=== PATIENT | female | born 1955 | race African-American/Black ===

== ENCOUNTER → 2016-08-18 | Outpatient (CLI) | payer OTHER ==
[~2016-08-18] VITALS: Ht 157.5 cm; Wt 54.1 kg
[~2016-08-18] MED LIST: ALBU0.08 NEB; ALBU0.086 NEB; ALBU8I INH; ATRO0.03 EACH NARE; AZAT50 PO; CALC.25 PO; CALC0.25 PO; CALC0.5C6 PO; CALC1CAP PO; CALC667T PO; CLON.2 PO; CYCL-36 PO; DILT300T PO; FLON0.053 EACH NARE; FLUT1SPR5 EACH NARE; INSULIN HUMAN REGULAR 1,000 UNITS/10 ML VIAL SQ PRN; IPRA0.02 NEB; LACTATED RINGER'S 1000 ML IV SCH; LATA.005%O EACH EYE; METOPROLOL TARTRATE 25 MG TAB PO PRN; OMPR20CCR PO; PRED5 PO; PRIL20CA9 PO; PROPOFOL 200 MG/20 ML AMP IV ONE; SODIUM CHLORID 0.9% 500 ML IV SCH; SYMB160A INH; SYMB80AE INH; TEKT300T PO; ZOFR4TAB3 SL
[2016-08-18 08:51] VITALS: BP 129/76; PULSE 90; RESP 20; TEMP 97.2; O2SAT 99
[2016-08-18 10:09] VITALS: TEMP 97.5
[2016-08-18 10:20] VITALS: BP 137/92; PULSE 94; RESP 18; O2SAT 97
--- NOTE | 2016-08-18 11:48 | GIPROC ---
[facility] [address] [facility]. [facility], [address] EGD PROCEDURE REPORT EXAM DATE: 08/18/2016 PATIENT NAME: Carmelina Diaz MR #: [id number] BIRTHDATE: 1955 ATTENDING: Rachael Lance MD ORDER #: [id number] CLIENT RESOLUTION SPECIALIST: Tavares Duran and Shana Sosa STATUS: outpatient INDICATIONS: The patient is a 61 yr old female here for an EGD due to dyspepsia and dyspepsia PROCEDURE PERFORMED: EGD w/ biopsy MEDICATIONS: None and Per Anesthesia. TOPICAL ANESTHETIC: none CONSENT: The patient understands the risks and benefits of the procedure and understands that these risks include, but are not limited to: sedation, allergic reaction, infection, perforation and/or bleeding. Alternative means of evaluation and treatment include, among others: physical exam, x-rays, and/or surgical intervention. The patient elects to proceed with this endoscopic procedure. medical equipment was checked for proper function. Hand hygiene and appropriate measures for infection prevention was taken. After the risks, benefits and alternatives of the procedure were thoroughly explained, Informed consent was verified, confirmed and timeout was successfully executed by the treatment team. The patient was anesthetized with topical anesthesia and the EC-3490Li (Pedi C) endoscope was introduced through the mouth and advanced to the second portion of the duodenum. Retroflexed views revealed no abnormalities The gastroscope was then slowly withdrawn and removed. Gastritis and gastropathy Bx from antrum. ADVERSE EVENTS: There were no complications. IMPRESSIONS: 1. Gastritis and gastropathy Bx from antrum 2. Retroflexed views revealed no abnormalities RECOMMENDATIONS: 1. await biopsy results. Biopsy results will not be ready for 7-10 days. If you don't hear from us in two weeks, call our office for biopsy results. 2. anti-reflux regimen 3. avoid NSAIDS 4. if Bx shows gastritis we will give patient PPI REPEAT EXAM: EGD. as needed Rachael Lance MD eSigned: Rachael Lance MD 08/18/2016 10:16 AM cc: CPT CODES: 44801 Upper gastrointestinal endoscopy including esophagus, stomach, and either the duodenum and/or jejunum as appropriate; with biopsy, single or multiple ICD CODES: 536.8 Dyspepsia and other specified disorders of function of stomach The ICD and CPT codes recommended by this software are interpretations from the data that the clinical staff has captured with the software. The verification of the translation of this report to the ICD and CPT codes and modifiers is the sole responsibility of the health care institution and practicing physician where this report was generated. [employer] will not be held responsible for the validity of the ICD and CPT codes included on this report. A assumes no liability for data contained or not contained herein. CPT is a registered trademark of the [employer]. PATIENT NAME: Carmelina Diaz MR#: [id number]
--- NOTE | 2016-08-18 11:53 | GIPROC ---
[facility] [address] [facility]. [facility], [address] COLONOSCOPY PROCEDURE REPORT EXAM DATE: 08/18/2016 PATIENT NAME: Carmelina Diaz MR #: [id number] BIRTHDATE: 1955 ENDOSCOPIST: Rachael Lance MD ORDER #: [id number] SHACTOR HELPER: Shana Sosa and Tavares Duran STATUS: outpatient INDICATIONS: The patient is a 61 yr old female here for a colonoscopy due to average risk patient for colon cancer PROCEDURE PERFORMED: Colonoscopy, screening MEDICATIONS: None and Per Anesthesia. PREP TYPE: PREP QUALITY: good ESTIMATED BLOOD LOSS: None CONSENT: The patient understands the risks and benefits of the procedure and understands that these risks include, but are not limited to: sedation, allergic reaction, infection, perforation and/or bleeding. Alternative means of evaluation and treatment include, among others: physical exam, x-rays, and/or surgical intervention. The patient elects to proceed with this endoscopic procedure. medical equipment was checked for proper function. Hand hygiene and appropriate measures for infection prevention was taken. After the risks, benefits and alternatives of the procedure were thoroughly explained, Informed consent was verified, confirmed and timeout was successfully executed by the treatment team. A digital exam revealed no abnormalities of the rectum The Pentax EC-3490Li endoscope was introduced through the anus and advanced to the cecum, which was identified by both the appendix and ileocecal valve. The instrument was then slowly withdrawn as the colon was fully examined. COLON FINDINGS: The colonic mucosa appeared normal. Retroflexed views revealed small internal hemorrhoids The scope was then completely withdrawn from the patient and the procedure terminated. SCOPE WITHDRAWAL TIME: Minutes ADVERSE EVENTS: There were no complications. IMPRESSIONS: 1. The colonic mucosa appeared normal 2. Retroflexed views revealed small internal hemorrhoids 3. Revealed no abnormalities of the rectum RECOMMENDATIONS: 1. high fiber diet 2. yearly hemoccult RECALL: Return in 10 years Colonoscopy. Rachael Lance MD eSigned: Rachael Lance MD 08/18/2016 10:10 AM cc: CPT CODES: 70557 Colonoscopy, flexible, proximal to splenic flexure; diagnostic, with or without collection of specimen(s) by brushing or washing, with or without colon decompression (separate procedure) ICD CODES: 455.2 Internal hemorrhoids with other complication V76.51 Special screening for malignant neoplasms,colon The ICD and CPT codes recommended by this software are interpretations from the data that the clinical staff has captured with the software. The verification of the translation of this report to the ICD and CPT codes and modifiers is the sole responsibility of the health care institution and practicing physician where this report was generated. [employer] will not be held responsible for the validity of the ICD and CPT codes included on this report. [employer] assumes no liability for data contained or not contained herein. CPT is a registered trademark of the [employer]. [id number]
--- NOTE | 2016-08-18 18:25 | EKG ---
Date Performed: 08/18/2016 Time Performed: 08:51:17 PTAGE: 61 years EKG: Sinus rhythm NORMAL ECG PREVIOUS TRACING : 05/26/2015 05.08 DOCTOR: Heath Person Interpretating Date/Time 08/18/2016 18:23:55
== END ==
LOC: HEND 07:55
PROVIDERS: ATTEND Hospitalist
DX: Z12.11 Encounter for screening for malignant neoplasm of colon (principal); K29.50 Unspecified chronic gastritis without bleeding; K64.8 Other hemorrhoids; R10.13 Epigastric pain; K31.9 Disease of stomach and duodenum, unspecified
CPT/HCPCS: 88305; 88312; 93005